=== PATIENT | female | born 1960 | race Asian ===

== ENCOUNTER 2023-02-06 23:52 | Emergency (ER) | payer OTHER ==
[2023-02-07] MEDS ORDERED: Benzonatate 100 MG CAP ONE (00:33)
[2023-02-07] MEDS ORDERED: Ipratropium/Albuterol 3 ML NEB ONE (00:40)
[2023-02-07 00:53] LABS: #Basophils 0.1 10x3/uL (0.0-0.2); #Eosinphils 0.5 10x3/uL (0.0-0.5); #Monocytes 0.5 10x3/uL (0.0-1.1); #Neutrophils 3.3 10x3/uL (1.5-8.4); %Basophils 1.1 % (0.0-2.0); %Lymphocytes 17.1 % (18.0-47.0); %Monocytes 9.3 % (0.0-10.0); %Neutrophils 63.1 % (40.0-75.0); Hemoglobin 9.1 g/dL (12.0-15.5); Mean Corpuscular HGB CONC 32.7 g/dL (32.0-36.0); Mean Corpuscular Hemoglobin 31.8 pg (27.0-33.0); Mean Corpuscular Volume 97.2 fl (81.6-98.3); Mean Platelet Volume 9.5 fl (7.4-10.4); Platelet Count 154 10x3/uL (150-450); RBC Distribution Width 14.3 % (11.5-14.5); Red Blood Cell (RBC) Count 2.86 10x6/uL (3.90-5.03); White Blood Cell (WBC) Count 5.3 10x3/uL (3.5-10.5)
[2023-02-07 01:04] LABS: ALT (SGPT) 12 U/L (8-55); AST (SGOT) 25 U/L (5-34); Albumin 3.2 g/dL (3.5-5.0); Alkaline Phosphatase 66 U/L (40-110); Anion Gap 15 mmol/L (10-20); BUN (Urea Nitrogen) 48 mg/dL (9.8-20.1); Bilirubin, Total 0.6 mg/dL (0.2-1.2); Calc. Creatinine Clearance 0 mL/min (70-130); Calcium 10.1 mg/dL (7.8-10.44); Carbon Dioxide 30 mmol/L (22-29); Chloride 95 mmol/L (98-107); Estimated GFR 6; Globulin 4.7 g/dL (2.4-3.5); Glucose 92 mg/dL (70-105); Potassium 4.4 mmol/L (3.5-5.1); Protein, Total 7.9 g/dL (6.0-8.3); Sodium 136 mmol/L (136-145)
[2023-02-07 01:21] LABS: SARS-CoV-2 NAA Rapid Test Not Detected (NotDetected)
== END 2023-02-07 02:02 | disposition home or self-care (01) ==
LOC: MERGE 23:52 → CSHERS 23:52
DX: J20.9 Acute bronchitis, unspecified (principal); Z20.822 Contact with and (suspected) exposure to COVID-19; I10 Essential (primary) hypertension; E03.9 Hypothyroidism, unspecified
CPT/HCPCS: 71045; 80053; 83880; 85025; 94640; 94760; J7620

== ENCOUNTER 2023-02-07 11:08 | Inpatient (IN) | payer OTHER ==
[2023-02-07] MEDS ORDERED: Acetaminophen 500 MG TAB ONE (12:20)
[2023-02-07] MEDS ORDERED: Cefepime 2 GM VIAL ONE (12:21)
[2023-02-07 12:23] LABS: Hemoglobin 8.3 g/dL (12.0-15.5); Mean Corpuscular HGB CONC 31.6 g/dL (32.0-36.0); Mean Corpuscular Hemoglobin 31.3 pg (27.0-33.0); Mean Corpuscular Volume 99.2 fl (81.6-98.3); Mean Platelet Volume 9.6 fl (7.4-10.4); Platelet Count 147 10x3/uL (150-450); RBC Distribution Width 14.4 % (11.5-14.5); Red Blood Cell (RBC) Count 2.65 10x6/uL (3.90-5.03); White Blood Cell (WBC) Count 5.7 10x3/uL (3.5-10.5)
[2023-02-07 12:24] LABS: #Basophils 0.1 10x3/uL (0.0-0.2); #Eosinphils 0.1 10x3/uL (0.0-0.5); #Monocytes 0.6 10x3/uL (0.0-1.1); #Neutrophils 4.1 10x3/uL (1.5-8.4); %Basophils 0.9 % (0.0-2.0); %Eosinophils 1.1 % (0.0-6.0); %Lymphocytes 15.5 % (18.0-47.0); %Neutrophils 72.1 % (40.0-75.0)
[2023-02-07 12:33] LABS: ALT (SGPT) 9 U/L (8-55); AST (SGOT) 24 U/L (5-34); Albumin 3.2 g/dL (3.5-5.0); Alkaline Phosphatase 56 U/L (40-110); Anion Gap 15 mmol/L (10-20); BUN (Urea Nitrogen) 46 mg/dL (9.8-20.1); Bilirubin, Total 0.5 mg/dL (0.2-1.2); CK (CPK) 121 U/L (29-168); Calc. Creatinine Clearance 0 mL/min (70-130); Calcium 9.5 mg/dL (7.8-10.44); Carbon Dioxide 30 mmol/L (22-29); Chloride 95 mmol/L (98-107); Estimated GFR 5; Globulin 4.2 g/dL (2.4-3.5); Glucose 116 mg/dL (70-105); Potassium 4.2 mmol/L (3.5-5.1); Protein, Total 7.4 g/dL (6.0-8.3); Sodium 136 mmol/L (136-145)
[2023-02-07 12:54] LABS: CKMB 0.8 ng/mL (0-6.6)
[2023-02-07] MEDS ORDERED: Ondansetron PF 4 MG/2 ML Vial IVP PRN (12:55)
[2023-02-07] MEDS ORDERED: Acetaminophen 650 MG Suppository PR PRN (12:55)
[2023-02-07] MEDS ORDERED: HYDROcodone/Acetaminophen 5/325 mg Tablet PO PRN (12:55)
[2023-02-07 13:10] LABS: HBSAg Index 0.14 S/CO (0-0.99)
[2023-02-07 13:46] LABS: Hep B Surf Ag NonReactive S/CO (NonReactive)
[2023-02-07 14:20] LABS: Phosphorus 4.5 mg/dL (2.3-4.7)
[2023-02-07 14:28] LABS: Albumin 3.4 g/dL (3.5-5.0); Anion Gap 18 mmol/L (10-20); BUN (Urea Nitrogen) 45 mg/dL (9.8-20.1); Calc. Creatinine Clearance 0 mL/min (70-130); Calcium 9.6 mg/dL (7.8-10.44); Carbon Dioxide 27 mmol/L (22-29); Chloride 95 mmol/L (98-107); Estimated GFR 5; Glucose 100 mg/dL (70-105); Phosphorus 4.6 mg/dL (2.3-4.7); Potassium 4.4 mmol/L (3.5-5.1); Sodium 136 mmol/L (136-145)
[2023-02-07 15:52] LABS: Troponin I 0.204 ng/mL (< 0.028)
[2023-02-07] MEDS: Heparin 5,000 UNITS/ML VIAL SC SCH ×2 (15:57→20:20)
[2023-02-07 16:49] VITALS: BMI 21.2
[2023-02-07] MEDS ORDERED: FLU VACC QS2022-23(6MOS UP)/PF 60 MCG/0.5 ML SYRINGE IM ONE (17:15)
[2023-02-07 18:16] LABS: Troponin I 0.274 ng/mL (< 0.028)
[2023-02-07] MEDS ORDERED: Heparin 10,000 UNITS/ 10 ML VIAL FS PRN (19:51)
[2023-02-07] MEDS ORDERED: Vancomycin HCl 1 GM in Sodium Chloride 0.9% 250 ML 250 ML IVPB SCH (20:00)
[2023-02-07] MEDS ORDERED: Vancomycin Hemodialysis Sliding Scale FS SCH (20:30)
[2023-02-08 01:44] LABS: Hep B Core Total Ab Non-Reactive (NonReactive); Hep B Core Total Index 0.27 S/CO (0-0.79); Hep C IgG Ab Non-Reactive (NonReactive); Hep C Index 0.27 S/CO (0-0.79)
[2023-02-08 02:16] LABS: HBSAB Concentration 723.01 mIU/mL; Hep B Surf AB Reactive (NonReactive)
[2023-02-08 05:47] LABS: #Eosinphils 0.2 10x3/uL (0.0-0.5); #Monocytes 0.6 10x3/uL (0.0-1.1); #Neutrophils 2.7 10x3/uL (1.5-8.4); %Basophils 0.7 % (0.0-2.0); %Eosinophils 5.3 % (0.0-6.0); %Lymphocytes 21.3 % (18.0-47.0); %Monocytes 12.7 % (0.0-10.0); %Neutrophils 59.8 % (40.0-75.0); Hemoglobin 8.8 g/dL (12.0-15.5); Mean Corpuscular HGB CONC 31.4 g/dL (32.0-36.0); Mean Corpuscular Hemoglobin 31.7 pg (27.0-33.0); Mean Corpuscular Volume 100.7 fl (81.6-98.3); Mean Platelet Volume 9.4 fl (7.4-10.4); Platelet Count 136 10x3/uL (150-450); RBC Distribution Width 14.7 % (11.5-14.5); Red Blood Cell (RBC) Count 2.78 10x6/uL (3.90-5.03); White Blood Cell (WBC) Count 4.5 10x3/uL (3.5-10.5)
[2023-02-08 05:56] LABS: ALT (SGPT) 10 U/L (8-55); AST (SGOT) 20 U/L (5-34); Albumin 2.8 g/dL (3.5-5.0); Alkaline Phosphatase 53 U/L (40-110); Anion Gap 11 mmol/L (10-20); BUN (Urea Nitrogen) 24 mg/dL (9.8-20.1); Bilirubin, Total 0.5 mg/dL (0.2-1.2); Calc. Creatinine Clearance 10 mL/min (70-130); Carbon Dioxide 31 mmol/L (22-29); Chloride 101 mmol/L (98-107); Estimated GFR 9; Globulin 4.3 g/dL (2.4-3.5); Glucose 98 mg/dL (70-105); Potassium 4.5 mmol/L (3.5-5.1); Protein, Total 7.1 g/dL (6.0-8.3); Sodium 138 mmol/L (136-145)
[2023-02-08] MEDS: Heparin 5,000 UNITS/ML VIAL SC SCH ×2 (08:51→14:59)
[2023-02-08] MEDS ORDERED: hydrALAZINE 25 MG TAB PO SCH (09:00)
[2023-02-08] MEDS ORDERED: Metoprolol Tartrate 25 MG TAB PO SCH (09:00)
[2023-02-08] MEDS ORDERED: Cefepime 0.5 GM, Admixture Fee 1 EACH in Sodium Chloride 0.9% 100 ML IVPB SCH (15:00)
[2023-02-08 16:42] VITALS: BP 109/58; TEMP 98.4
== END 2023-02-08 17:45 | disposition short-term general hospital (02) | DRG 871 ==
LOC: CSHERS 11:08 → SUATTDRO 11:08 → CSHTELE 12:54 → OBSVTOIN 12:54
PROVIDERS: ADMIT Internal Medicine; ATTEND Internal Medicine
PROC: 5A1D70Z Performance of Urinary Filtration, Intermittent, Less than 6 Hours Per Day (ICD-10-PCS; principal; 2023-02-07)
PROC: 3E03329 Introduction of Other Anti-infective into Peripheral Vein, Percutaneous Approach (ICD-10-PCS; 2023-02-07)
DX: A41.9 Sepsis, unspecified organism (principal); I21.A1 Myocardial infarction type 2; N18.6 End stage renal disease; J96.01 Acute respiratory failure with hypoxia; J18.9 Pneumonia, unspecified organism; J90 Pleural effusion, not elsewhere classified; I12.0 Hypertensive chronic kidney disease with stage 5 chronic kidney disease or end stage renal disease; E87.70 Fluid overload, unspecified; D63.1 Anemia in chronic kidney disease; Z20.822 Contact with and (suspected) exposure to COVID-19
CPT/HCPCS: 36415; 71045; 71250; 80053; 82550; 82553; 83605; 83880; 84100; 84484; 85025; 86704; 87040; 87081; 90935; 93005; 93306; 94760; 94762; 96365; G0257; J0692; J1644; J3370; J3490; J7050; U0003; U0005

== ENCOUNTER 2023-06-08 15:39 | Emergency (ER) | payer OTHER ==
[~2023-06-08 15:39] MED LIST: Iopamidol 370 76% 100 ML VIAL ONE
[2023-06-08 18:36] LABS: Hemoglobin 8.8 g/dL (12.0-15.5); Mean Corpuscular HGB CONC 29.5 g/dL (32.0-36.0); Mean Corpuscular Hemoglobin 28.2 pg (27.0-33.0); Mean Corpuscular Volume 95.5 fl (81.6-98.3); Mean Platelet Volume 9.8 fl (7.4-10.4); Platelet Count 83 10x3/uL (150-450); RBC Distribution Width 17.2 % (11.5-14.5); Red Blood Cell (RBC) Count 3.12 10x6/uL (3.90-5.03); White Blood Cell (WBC) Count 5.4 10x3/uL (3.5-10.5)
[2023-06-08 18:51] LABS: ALT (SGPT) 8 U/L (8-55); AST (SGOT) 26 U/L (5-34); Albumin 2.8 g/dL (3.4-4.8); Alkaline Phosphatase 49 U/L (40-110); Anion Gap 10 mmol/L (10-20); BUN (Urea Nitrogen) 17 mg/dL (9.8-20.1); Bilirubin, Total 0.8 mg/dL (0.2-1.2); Calc. Creatinine Clearance 0 mL/min (70-130); Carbon Dioxide 33 mmol/L (23-31); Chloride 97 mmol/L (98-107); Estimated GFR 12; Globulin 5.1 g/dL (2.4-3.5); Glucose 72 mg/dL (80-115); Lipase 24 U/L (8-78); Potassium 4.4 mmol/L (3.5-5.1); Protein, Total 7.9 g/dL (5.8-8.1); Sodium 136 mmol/L (136-145)
[2023-06-08 18:54] LABS: MDiff Complete? YES
[2023-06-08 18:56] LABS: Eosinophils 26 % (0-10); Lymphocytes 15 % (21-51); Monocytes 2 % (0-10); Neutrophil 57 % (42-75)
[2023-06-08 18:57] LABS: Anisocytosis SLIGHT = 6-15 cells (100X) (0-5/hpf); Hypochromia SLIGHT = 6-15 cells (100X) (0-5/hpf); Polychromasia SLIGHT = 2-3 cells (100X) (0-2/hpf)
[2023-06-08 18:58] LABS: Platelet Adequacy Comment Platelets Decreased
[2023-06-08 19:14] LABS: CKMB 0.4 ng/mL (0-6.6)
[2023-06-08 19:21] LABS: SARS-CoV-2 NAA Rapid Test Not Detected (NotDetected)
[2023-06-08 19:45] LABS: Bilirubin Neg (Negative); Blood, Urine 10 (Negative); Clarity Clear (Clear); Glucose, Urine (Dipstick) 100 mg/dL (Negative); Ketone, Urine Negative (Negative); Leukocyte Negative (Negative); Nitrite Negative (Negative); Protein, Urine (Dipstick) 500 mg/dl (Neg-Trace); Urobilinogen Normal mg/dL (Less than 2)
[2023-06-08 20:01] LABS: Bacteria/HPF Rare-Few HPF (None Seen); CAUTI Indications for Culture Pelvic or flank pain; RBC/HPF 0-3 HPF (0-3); Squamous Epithelial None Seen HPF (0-3); WBC/HPF 0-3 HPF (0-3)
[2023-06-08 20:02] LABS: Urine Culture Reflex No No
[2023-06-08] MEDS ORDERED: Promethazine HCl 6.25 MG in Sodium Chloride 0.9% 50 ML IVPB SCH (20:30)
== END 2023-06-08 22:00 | disposition home or self-care (01) ==
LOC: CSHERS 15:39
DX: R10.9 Unspecified abdominal pain (principal); R50.9 Fever, unspecified; I12.9 Hypertensive chronic kidney disease with stage 1 through stage 4 chronic kidney disease, or unspecified chronic kidney disease; N18.9 Chronic kidney disease, unspecified; E03.9 Hypothyroidism, unspecified
CPT/HCPCS: 36415; 36416; 51701; 71045; 74176; 74177; 80053; 81001; 82553; 83605; 83690; 83735; 84484; 85025; 87040; 93005; 96365; J2550; Q9967; U0002

== ENCOUNTER 2023-07-07 17:50 | Inpatient (IN) | payer OTHER ==
[2023-07-07] MEDS ORDERED: Acetaminophen 500 MG TAB ONE (18:57)
[2023-07-07 19:35] LABS: #Basophils 0.1 10x3/uL (0.0-0.2); #Eosinphils 0.1 10x3/uL (0.0-0.5); #Monocytes 0.6 10x3/uL (0.0-1.1); #Neutrophils 6.7 10x3/uL (1.5-8.4); %Basophils 0.7 % (0.0-2.0); %Eosinophils 1.4 % (0.0-6.0); %Lymphocytes 11.7 % (18.0-47.0); %Monocytes 7.4 % (0.0-10.0); %Neutrophils 77.6 % (40.0-75.0); Hematocrit 24.8 % (34.9-44.5); Hemoglobin 7.8 g/dL (12.0-15.5); Mean Corpuscular HGB CONC 31.5 g/dL (32.0-36.0); Mean Corpuscular Hemoglobin 29.3 pg (27.0-33.0); Mean Corpuscular Volume 93.2 fl (81.6-98.3); Mean Platelet Volume 10.3 fl (7.4-10.4); Platelet Count 132 10x3/uL (150-450); RBC Distribution Width 17.9 % (11.5-14.5); Red Blood Cell (RBC) Count 2.66 10x6/uL (3.90-5.03); White Blood Cell (WBC) Count 8.6 10x3/uL (3.5-10.5)
[2023-07-07 19:45] LABS: INR-International Normal Ratio 1.4; PTT 34.7 sec (22.0-33.0); Prothrombin Time 14.9 sec (9.5-12.1)
[2023-07-07 19:48] LABS: ALT (SGPT) 28 U/L (8-55); AST (SGOT) 57 U/L (5-34); Albumin 2.8 g/dL (3.4-4.8); Alkaline Phosphatase 63 U/L (40-110); Anion Gap 16 mmol/L (10-20); BUN (Urea Nitrogen) 46 mg/dL (9.8-20.1); Calc. Creatinine Clearance 0 mL/min (70-130); Calcium 8.8 mg/dL (7.8-10.44); Carbon Dioxide 27 mmol/L (23-31); Chloride 93 mmol/L (98-107); Estimated GFR 8; Globulin 4.9 g/dL (2.4-3.5); Glucose 81 mg/dL (80-115); Potassium 5.2 mmol/L (3.5-5.1); Protein, Total 7.7 g/dL (5.8-8.1); Sodium 131 mmol/L (136-145)
[2023-07-07 20:32] LABS: Bilirubin Neg (Negative); Blood, Urine 150 (Negative); Glucose, Urine (Dipstick) 100 mg/dL (Negative); Ketone, Urine Negative (Negative); Leukocyte 25 (Negative); Nitrite Negative (Negative); Protein, Urine (Dipstick) 500 mg/dl (Neg-Trace); Urobilinogen Normal mg/dL (Less than 2)
[2023-07-07 20:39] LABS: Clarity Hazy (Clear); RBC/HPF 21-50 HPF (0-3)
[2023-07-07 20:40] LABS: CAUTI Indications for Culture Dysuria,urgency,freq; Squamous Epithelial 0-3 HPF (0-3); WBC/HPF 0-3 HPF (0-3)
[2023-07-07 20:41] LABS: Bacteria/HPF None Seen HPF (None Seen); Urine Culture Reflex No No
[2023-07-07 21:06] LABS: SARS-CoV-2 NAA Rapid Test Not Detected (NotDetected)
[2023-07-08] MEDS ORDERED: Piperacillin/Tazobactam 3.375 GM in Sodium Chloride 0.9% 100 ML IVPB SCH (01:00)
[2023-07-08] MEDS: Mineral Oil ENEMA PR SCH ×3 (01:05→08:10)
[2023-07-08 03:46] VITALS: BMI 18.3
[2023-07-08] MEDS: Piperacillin/Tazobactam 3.375 GM in Sodium Chloride 0.9% 100 ML IVPB SCH ×2 (04:15→21:20)
[2023-07-08 05:30] LABS: #Basophils 0.1 10x3/uL (0.0-0.2); #Eosinphils 0.2 10x3/uL (0.0-0.5); #Monocytes 0.6 10x3/uL (0.0-1.1); #Neutrophils 7.7 10x3/uL (1.5-8.4); %Basophils 0.6 % (0.0-2.0); %Eosinophils 1.8 % (0.0-6.0); %Lymphocytes 9.4 % (18.0-47.0); %Monocytes 6.2 % (0.0-10.0); %Neutrophils 81.2 % (40.0-75.0); Hematocrit 29.8 % (34.9-44.5); Hemoglobin 9.7 g/dL (12.0-15.5); Mean Corpuscular HGB CONC 32.6 g/dL (32.0-36.0); Mean Corpuscular Hemoglobin 29.7 pg (27.0-33.0); Mean Corpuscular Volume 91.1 fl (81.6-98.3); Mean Platelet Volume 10.5 fl (7.4-10.4); Platelet Count 105 10x3/uL (150-450); RBC Distribution Width 18.4 % (11.5-14.5); Red Blood Cell (RBC) Count 3.27 10x6/uL (3.90-5.03); White Blood Cell (WBC) Count 9.5 10x3/uL (3.5-10.5)
[2023-07-08 05:46] LABS: Anion Gap 20 mmol/L (10-20); BUN (Urea Nitrogen) 54 mg/dL (9.8-20.1); Calc. Creatinine Clearance 7 mL/min (70-130); Calcium 8.5 mg/dL (7.8-10.44); Carbon Dioxide 22 mmol/L (23-31); Chloride 95 mmol/L (98-107); Estimated GFR 7; Glucose 95 mg/dL (80-115); Phosphorus 4.5 mg/dL (2.3-4.7); Potassium 5.6 mmol/L (3.5-5.1); Sodium 131 mmol/L (136-145)
[2023-07-08] MEDS: Docusate 100 MG CAP PO SCH ×2 (08:09→21:41)
[2023-07-08] MEDS ORDERED: Insulin Regular 300 UNITS/3 ML VIAL IVP SCH (09:00)
[2023-07-08] MEDS ORDERED: Dextrose 50% Abboject 50 ML SYRINGE SLOW IVP SCH ×2 (09:00→13:05)
[2023-07-08] MEDS ORDERED: Piperacillin/Tazobactam 2.25 GM in Sodium Chloride 0.9% 100 ML IVPB SCH (09:00)
[2023-07-08] MEDS ORDERED: Polyethylene Glycol 3350 17 GM Packet PO SCH ×3 (09:00→21:00)
[2023-07-08] MEDS: Folic Acid/Vit B Comp W-C PO SCH (09:52)
[2023-07-08] MEDS: Dextrose 5 %-0.45 % NaCl 1,000 ML IV SCH (13:54)
[2023-07-08 20:44] LABS: Campy jejuni + coli by PCR Negative (Negative); STEC Shiga Toxin 1+2 Negative (Negative); Salmonella spp. by PCR Negative (Negative); Shigella spp + EIEC by PCR Negative (Negative)
[2023-07-08] MEDS ORDERED: Dextrose 50% Abboject 50 ML SYRINGE ONE (21:29)
[2023-07-09] MEDS ORDERED: Vancomycin HCl 1 GM in Sodium Chloride 0.9% 250 ML 250 ML IVPB SCH (00:30)
[2023-07-09] MEDS ORDERED: Vancomycin Hemodialysis Sliding Scale FS SCH (00:45)
[2023-07-09] MEDS ORDERED: metroNIDAZOLE 500 MG in Premix Bag 1 BAG IVPB SCH (01:00)
[2023-07-09] MEDS: Acetaminophen 325 MG TAB PO PRN (01:07)
[2023-07-09 05:06] LABS: Anion Gap 15 mmol/L (10-20); BUN (Urea Nitrogen) 18 mg/dL (9.8-20.1); Calc. Creatinine Clearance 14 mL/min (70-130); Calcium 7.9 mg/dL (7.8-10.44); Carbon Dioxide 24 mmol/L (23-31); Chloride 100 mmol/L (98-107); Estimated GFR 15; Glucose 111 mg/dL (80-115); Potassium 3.8 mmol/L (3.5-5.1); Sodium 135 mmol/L (136-145)
[2023-07-09 05:08] LABS: Hematocrit 30.6 % (34.9-44.5); Hemoglobin 9.6 g/dL (12.0-15.5); Mean Corpuscular HGB CONC 31.4 g/dL (32.0-36.0); Mean Corpuscular Hemoglobin 29.1 pg (27.0-33.0); Mean Corpuscular Volume 92.7 fl (81.6-98.3); Mean Platelet Volume 10.2 fl (7.4-10.4); Platelet Count 104 10x3/uL (150-450); RBC Distribution Width 18.4 % (11.5-14.5); White Blood Cell (WBC) Count 9.9 10x3/uL (3.5-10.5)
[2023-07-09] MEDS: Levothyroxine Sodium 100 MCG TAB PO SCH (05:30)
[2023-07-09] MEDS: Piperacillin/Tazobactam 3.375 GM in Sodium Chloride 0.9% 100 ML IVPB SCH ×2 (05:31→17:02)
[2023-07-09] MEDS: Docusate 100 MG CAP PO SCH (09:24)
[2023-07-09] MEDS: Folic Acid/Vit B Comp W-C PO SCH (09:25)
[2023-07-09] MEDS: Dextrose 5 %-0.45 % NaCl 1,000 ML IV SCH (09:43)
[2023-07-10] MEDS: Piperacillin/Tazobactam 3.375 GM in Sodium Chloride 0.9% 100 ML IVPB SCH ×2 (05:51→17:23)
[2023-07-10] MEDS: Levothyroxine Sodium 100 MCG TAB PO SCH (05:52)
[2023-07-10] MEDS: Folic Acid/Vit B Comp W-C PO SCH (08:31)
[2023-07-10] MEDS ORDERED: Epoetin (ESRD) 10,000 UNITS/ML VIAL IVP PRN (11:15)
[2023-07-11] MEDS: Levothyroxine Sodium 100 MCG TAB PO SCH (05:27)
[2023-07-11 07:53] LABS: Hematocrit 28.7 % (34.9-44.5); Hemoglobin 9.1 g/dL (12.0-15.5); Mean Corpuscular HGB CONC 31.7 g/dL (32.0-36.0); Mean Corpuscular Hemoglobin 29.3 pg (27.0-33.0); Mean Corpuscular Volume 92.3 fl (81.6-98.3); Mean Platelet Volume 9.5 fl (7.4-10.4); Platelet Count 112 10x3/uL (150-450); RBC Distribution Width 18.4 % (11.5-14.5); Red Blood Cell (RBC) Count 3.11 10x6/uL (3.90-5.03); Vancomycin, Random 15.7 ug/mL (See Comment); White Blood Cell (WBC) Count 7.8 10x3/uL (3.5-10.5)
[2023-07-11 07:57] LABS: Anion Gap 15 mmol/L (10-20); BUN (Urea Nitrogen) 34 mg/dL (9.8-20.1); Calc. Creatinine Clearance 8 mL/min (70-130); Calcium 7.8 mg/dL (7.8-10.44); Carbon Dioxide 23 mmol/L (23-31); Chloride 98 mmol/L (98-107); Estimated GFR 7; Glucose 83 mg/dL (80-115); Potassium 4.2 mmol/L (3.5-5.1); Sodium 132 mmol/L (136-145)
[2023-07-11] MEDS: Folic Acid/Vit B Comp W-C PO SCH (08:33)
[2023-07-11] MEDS: Hydrocortisone 10 mg Tablet PO SCH ×3 (09:23→12:21)
[2023-07-11] MEDS ORDERED: Vancomycin HCl 500 MG in Sodium Chloride 0.9% 100 ML IVPB SCH (17:00)
[2023-07-11] MEDS: Acetaminophen 325 MG TAB PO PRN (22:25)
[2023-07-12] MEDS: Levothyroxine Sodium 100 MCG TAB PO SCH (06:34)
[2023-07-12] MEDS: Hydrocortisone 10 mg Tablet PO SCH ×2 (08:04→13:23)
[2023-07-12] MEDS: Folic Acid/Vit B Comp W-C PO SCH (08:13)
[2023-07-12 09:35] LABS: Albumin 2.3 g/dL (3.4-4.8); Anion Gap 14 mmol/L (10-20); BUN (Urea Nitrogen) 18 mg/dL (9.8-20.1); BUN/Creatinine Ratio 4.59; Calc. Creatinine Clearance 12 mL/min (70-130); Calcium 8.1 mg/dL (7.8-10.44); Carbon Dioxide 24 mmol/L (23-31); Chloride 100 mmol/L (98-107); Estimated GFR 12; Glucose 86 mg/dL (80-115); Phosphorus 3.7 mg/dL (2.3-4.7); Potassium 3.9 mmol/L (3.5-5.1); Sodium 134 mmol/L (136-145)
[2023-07-12] MEDS: Senokot S 8.6-50 MG TAB PO SCH (21:49)
[2023-07-13 03:10] LABS: #Basophils 0.1 10x3/uL (0.0-0.2); #Eosinphils 0.4 10x3/uL (0.0-0.5); #Monocytes 0.6 10x3/uL (0.0-1.1); #Neutrophils 4.7 10x3/uL (1.5-8.4); %Basophils 0.9 % (0.0-2.0); %Eosinophils 5.9 % (0.0-6.0); %Lymphocytes 15.6 % (18.0-47.0); %Monocytes 8.7 % (0.0-10.0); %Neutrophils 68.6 % (40.0-75.0); Hematocrit 28.8 % (34.9-44.5); Hemoglobin 9.1 g/dL (12.0-15.5); Mean Corpuscular HGB CONC 31.6 g/dL (32.0-36.0); Mean Corpuscular Hemoglobin 29.5 pg (27.0-33.0); Mean Corpuscular Volume 93.5 fl (81.6-98.3); Mean Platelet Volume 9.5 fl (7.4-10.4); Platelet Count 142 10x3/uL (150-450); RBC Distribution Width 18.4 % (11.5-14.5); Red Blood Cell (RBC) Count 3.08 10x6/uL (3.90-5.03); White Blood Cell (WBC) Count 6.8 10x3/uL (3.5-10.5)
[2023-07-13 04:09] LABS: Albumin 2.2 g/dL (3.4-4.8); Anion Gap 15 mmol/L (10-20); BUN (Urea Nitrogen) 25 mg/dL (9.8-20.1); BUN/Creatinine Ratio 5.04; Calc. Creatinine Clearance 9 mL/min (70-130); Calcium 8.4 mg/dL (7.8-10.44); Carbon Dioxide 25 mmol/L (23-31); Chloride 97 mmol/L (98-107); Estimated GFR 9; Glucose 117 mg/dL (80-115); Potassium 4.3 mmol/L (3.5-5.1); Sodium 133 mmol/L (136-145)
[2023-07-13] MEDS: Levothyroxine Sodium 100 MCG TAB PO SCH (05:43)
[2023-07-13 07:32] LABS: Vancomycin, Random 16.8 ug/mL (See Comment)
[2023-07-13] MEDS: Hydrocortisone 10 mg Tablet PO SCH ×2 (09:06→12:49)
[2023-07-13] MEDS: Senokot S 8.6-50 MG TAB PO SCH ×2 (09:06→21:45)
[2023-07-13] MEDS: Polyethylene Glycol 3350 17 GM Packet PO SCH (09:06)
[2023-07-13] MEDS: Folic Acid/Vit B Comp W-C PO SCH (09:07)
[2023-07-13] MEDS: Sevelamer Carbonate 800 MG TAB PO SCH ×2 (12:50→18:30)
[2023-07-13] MEDS ORDERED: Vancomycin HCl 500 MG in Sodium Chloride 0.9% 100 ML IVPB SCH (17:00)
[2023-07-13] MEDS: Acetaminophen 325 MG TAB PO PRN (23:29)
[2023-07-14 03:28] LABS: #Eosinphils 0.5 10x3/uL (0.0-0.5); #Monocytes 0.5 10x3/uL (0.0-1.1); #Neutrophils 4.7 10x3/uL (1.5-8.4); %Basophils 0.6 % (0.0-2.0); %Eosinophils 7.7 % (0.0-6.0); %Lymphocytes 17.1 % (18.0-47.0); %Monocytes 6.8 % (0.0-10.0); %Neutrophils 67.4 % (40.0-75.0); Hematocrit 28.5 % (34.9-44.5); Hemoglobin 8.7 g/dL (12.0-15.5); Mean Corpuscular HGB CONC 30.5 g/dL (32.0-36.0); Mean Platelet Volume 9.3 fl (7.4-10.4); Platelet Count 156 10x3/uL (150-450); RBC Distribution Width 18.4 % (11.5-14.5); White Blood Cell (WBC) Count 6.9 10x3/uL (3.5-10.5)
[2023-07-14 04:10] LABS: Albumin 2.1 g/dL (3.4-4.8); Anion Gap 15 mmol/L (10-20); BUN (Urea Nitrogen) 34 mg/dL (9.8-20.1); BUN/Creatinine Ratio 5.63; Calc. Creatinine Clearance 8 mL/min (70-130); Carbon Dioxide 23 mmol/L (23-31); Chloride 98 mmol/L (98-107); Estimated GFR 7; Glucose 94 mg/dL (80-115); Phosphorus 6.1 mg/dL (2.3-4.7); Potassium 4.4 mmol/L (3.5-5.1); Sodium 132 mmol/L (136-145)
[2023-07-14] MEDS: Levothyroxine Sodium 100 MCG TAB PO SCH (05:53)
[2023-07-14] MEDS: Hydrocortisone 10 mg Tablet PO SCH ×2 (10:11→10:12)
[2023-07-14] MEDS: Sevelamer Carbonate 800 MG TAB PO SCH ×3 (10:11→17:40)
[2023-07-14] MEDS: Senokot S 8.6-50 MG TAB PO SCH ×2 (10:12→21:47)
[2023-07-14] MEDS: Polyethylene Glycol 3350 17 GM Packet PO SCH (10:12)
[2023-07-14] MEDS: Folic Acid/Vit B Comp W-C PO SCH (10:13)
[2023-07-14] MEDS ORDERED: Heparin 10,000 UNITS/ 10 ML VIAL ONE (11:42)
[2023-07-14] MEDS ORDERED: Bupivacaine PF 0.5% 30 ML VIAL ONE (11:42)
[2023-07-14] MEDS: hydrALAZINE 25 MG TAB PO SCH ×2 (15:40→21:48)
[2023-07-14] MEDS: Amlodipine 10 MG TAB PO SCH (21:47)
[2023-07-15 05:23] LABS: #Eosinphils 0.4 10x3/uL (0.0-0.5); #Monocytes 0.5 10x3/uL (0.0-1.1); #Neutrophils 4.1 10x3/uL (1.5-8.4); %Basophils 0.7 % (0.0-2.0); %Eosinophils 6.4 % (0.0-6.0); %Lymphocytes 15.9 % (18.0-47.0); %Monocytes 8.4 % (0.0-10.0); %Neutrophils 68.1 % (40.0-75.0); Hematocrit 28.8 % (34.9-44.5); Hemoglobin 8.8 g/dL (12.0-15.5); Mean Corpuscular HGB CONC 30.6 g/dL (32.0-36.0); Mean Corpuscular Hemoglobin 29.6 pg (27.0-33.0); Mean Platelet Volume 9.2 fl (7.4-10.4); Platelet Count 153 10x3/uL (150-450); RBC Distribution Width 18.6 % (11.5-14.5); Red Blood Cell (RBC) Count 2.97 10x6/uL (3.90-5.03)
[2023-07-15] MEDS: Levothyroxine Sodium 100 MCG TAB PO SCH (05:41)
[2023-07-15 05:47] LABS: Albumin 2.1 g/dL (3.4-4.8); Anion Gap 12 mmol/L (10-20); BUN (Urea Nitrogen) 17 mg/dL (9.8-20.1); BUN/Creatinine Ratio 4.58; Calc. Creatinine Clearance 13 mL/min (70-130); Calcium 7.8 mg/dL (7.8-10.44); Carbon Dioxide 27 mmol/L (23-31); Chloride 100 mmol/L (98-107); Estimated GFR 13; Glucose 94 mg/dL (80-115); Phosphorus 4.1 mg/dL (2.3-4.7); Potassium 3.8 mmol/L (3.5-5.1); Sodium 135 mmol/L (136-145)
[2023-07-15 06:20] LABS: Vancomycin, Random 16.7 ug/mL (See Comment)
[2023-07-15] MEDS: Folic Acid/Vit B Comp W-C PO SCH (10:39)
[2023-07-15] MEDS: Senokot S 8.6-50 MG TAB PO SCH ×2 (10:39→21:49)
[2023-07-15] MEDS: Polyethylene Glycol 3350 17 GM Packet PO SCH (10:39)
[2023-07-15] MEDS: hydrALAZINE 25 MG TAB PO SCH ×3 (10:39→21:49)
[2023-07-15] MEDS: Sevelamer Carbonate 800 MG TAB PO SCH ×4 (10:39→17:36)
[2023-07-15] MEDS: Hydrocortisone 10 mg Tablet PO SCH ×2 (10:48→12:44)
[2023-07-15] MEDS ORDERED: Morphine 2 MG/ML VIAL SLOW IVP SCH (12:00)
[2023-07-15] MEDS ORDERED: Vancomycin HCl 500 MG in Sodium Chloride 0.9% 100 ML IVPB SCH (17:00)
[2023-07-15] MEDS: Acetaminophen 325 MG TAB PO PRN (17:35)
[2023-07-15] MEDS ORDERED: Metoprolol Tartrate 25 MG TAB PO SCH (18:00)
[2023-07-15] MEDS: Amlodipine 10 MG TAB PO SCH (21:49)
[2023-07-16 05:03] LABS: #Eosinphils 0.6 10x3/uL (0.0-0.5); #Monocytes 0.5 10x3/uL (0.0-1.1); #Neutrophils 3.7 10x3/uL (1.5-8.4); %Basophils 0.7 % (0.0-2.0); %Eosinophils 9.9 % (0.0-6.0); %Lymphocytes 19.7 % (18.0-47.0); %Monocytes 8.6 % (0.0-10.0); %Neutrophils 60.9 % (40.0-75.0); Hematocrit 29.3 % (34.9-44.5); Hemoglobin 8.8 g/dL (12.0-15.5); Mean Corpuscular Volume 96.7 fl (81.6-98.3); Mean Platelet Volume 9.2 fl (7.4-10.4); Platelet Count 154 10x3/uL (150-450); RBC Distribution Width 18.9 % (11.5-14.5); Red Blood Cell (RBC) Count 3.03 10x6/uL (3.90-5.03); White Blood Cell (WBC) Count 6.1 10x3/uL (3.5-10.5)
[2023-07-16 05:24] LABS: Anion Gap 13 mmol/L (10-20); BUN (Urea Nitrogen) 23 mg/dL (9.8-20.1); Calc. Creatinine Clearance 9 mL/min (70-130); Calcium 8.1 mg/dL (7.8-10.44); Carbon Dioxide 27 mmol/L (23-31); Chloride 98 mmol/L (98-107); Estimated GFR 9; Glucose 68 mg/dL (80-115); Potassium 4.6 mmol/L (3.5-5.1); Sodium 133 mmol/L (136-145)
[2023-07-16] MEDS: Levothyroxine Sodium 100 MCG TAB PO SCH (05:37)
[2023-07-16] MEDS: Sevelamer Carbonate 800 MG TAB PO SCH ×3 (08:27→17:06)
[2023-07-16] MEDS: hydrALAZINE 25 MG TAB PO SCH ×3 (08:27→22:23)
[2023-07-16] MEDS: Folic Acid/Vit B Comp W-C PO SCH (08:27)
[2023-07-16] MEDS ORDERED: Bisacodyl 5 MG TAB PO SCH (09:00)
[2023-07-16] MEDS: Polyethylene Glycol 3350 17 GM Packet PO SCH (09:08)
[2023-07-16] MEDS: Hydrocortisone 10 mg Tablet PO SCH ×2 (09:08→13:00)
[2023-07-16] MEDS: Acetaminophen 325 MG TAB PO PRN (09:09)
[2023-07-16] MEDS: Senokot S 8.6-50 MG TAB PO SCH ×2 (09:10→22:24)
[2023-07-16] MEDS: Amlodipine 10 MG TAB PO SCH (22:24)
[2023-07-17 03:44] LABS: #Basophils 0.1 10x3/uL (0.0-0.2); #Eosinphils 0.7 10x3/uL (0.0-0.5); #Monocytes 0.4 10x3/uL (0.0-1.1); #Neutrophils 3.4 10x3/uL (1.5-8.4); %Basophils 1.1 % (0.0-2.0); %Eosinophils 12.5 % (0.0-6.0); %Lymphocytes 17.7 % (18.0-47.0); %Monocytes 6.8 % (0.0-10.0); %Neutrophils 61.5 % (40.0-75.0); Hematocrit 28.5 % (34.9-44.5); Hemoglobin 8.5 g/dL (12.0-15.5); Mean Corpuscular HGB CONC 29.8 g/dL (32.0-36.0); Mean Corpuscular Hemoglobin 29.2 pg (27.0-33.0); Mean Corpuscular Volume 97.9 fl (81.6-98.3); Platelet Count 159 10x3/uL (150-450); RBC Distribution Width 18.8 % (11.5-14.5); Red Blood Cell (RBC) Count 2.91 10x6/uL (3.90-5.03); White Blood Cell (WBC) Count 5.6 10x3/uL (3.5-10.5)
[2023-07-17] MEDS: Levothyroxine Sodium 100 MCG TAB PO SCH (06:54)
[2023-07-17] MEDS: Polyethylene Glycol 3350 17 GM Packet PO SCH (08:42)
[2023-07-17] MEDS: hydrALAZINE 25 MG TAB PO SCH ×3 (08:42→21:44)
[2023-07-17] MEDS: Sevelamer Carbonate 800 MG TAB PO SCH ×3 (08:42→16:32)
[2023-07-17] MEDS: Senokot S 8.6-50 MG TAB PO SCH ×2 (08:42→23:00)
[2023-07-17] MEDS: Folic Acid/Vit B Comp W-C PO SCH (08:43)
[2023-07-17] MEDS: Hydrocortisone 10 mg Tablet PO SCH ×2 (08:58→12:08)
[2023-07-17] MEDS: Acetaminophen 325 MG TAB PO PRN (12:08)
[2023-07-17] MEDS ORDERED: Azithromycin 250 MG TAB PO SCH (17:00)
[2023-07-17] MEDS: cefTRIAXone\\ROCEPHIN 1 GM in Sodium Chloride 0.9% 100 ML IVPB SCH (18:49)
[2023-07-17] MEDS: Amlodipine 10 MG TAB PO SCH (21:44)
[2023-07-18 03:39] LABS: #Basophils 0.1 10x3/uL (0.0-0.2); #Eosinphils 0.7 10x3/uL (0.0-0.5); #Monocytes 0.5 10x3/uL (0.0-1.1); #Neutrophils 4.2 10x3/uL (1.5-8.4); %Basophils 0.9 % (0.0-2.0); %Eosinophils 10.4 % (0.0-6.0); %Lymphocytes 16.6 % (18.0-47.0); %Monocytes 7.1 % (0.0-10.0); %Neutrophils 64.8 % (40.0-75.0); Hematocrit 27.6 % (34.9-44.5); Hemoglobin 8.3 g/dL (12.0-15.5); Mean Corpuscular HGB CONC 30.1 g/dL (32.0-36.0); Mean Corpuscular Hemoglobin 29.9 pg (27.0-33.0); Mean Corpuscular Volume 99.3 fl (81.6-98.3); Mean Platelet Volume 9.3 fl (7.4-10.4); Platelet Count 157 10x3/uL (150-450); RBC Distribution Width 19.2 % (11.5-14.5); Red Blood Cell (RBC) Count 2.78 10x6/uL (3.90-5.03); White Blood Cell (WBC) Count 6.5 10x3/uL (3.5-10.5)
[2023-07-18 03:45] LABS: Vancomycin, Random 18.2 ug/mL (See Comment)
[2023-07-18] MEDS: Levothyroxine Sodium 100 MCG TAB PO SCH (07:49)
[2023-07-18] MEDS: Sevelamer Carbonate 800 MG TAB PO SCH ×3 (08:06→16:11)
[2023-07-18] MEDS ORDERED: Dextrose 50% Abboject 50 ML SYRINGE SLOW IVP SCH (08:15)
[2023-07-18] MEDS ORDERED: PROPOFOL 20 ML ONE (10:06)
[2023-07-18] MEDS: Hydrocortisone 10 mg Tablet PO SCH ×2 (12:00→12:27)
[2023-07-18] MEDS: hydrALAZINE 25 MG TAB PO SCH ×3 (12:25→20:33)
[2023-07-18] MEDS: Folic Acid/Vit B Comp W-C PO SCH (12:25)
[2023-07-18] MEDS: Polyethylene Glycol 3350 17 GM Packet PO SCH (12:26)
[2023-07-18] MEDS: Senokot S 8.6-50 MG TAB PO SCH ×2 (12:26→20:33)
[2023-07-18] MEDS: Azithromycin 250 MG TAB PO SCH (15:16)
[2023-07-18] MEDS ORDERED: cefTRIAXone (ROCEPHIN) 1 GM VIAL ONE (16:05)
[2023-07-18] MEDS: cefTRIAXone\\ROCEPHIN 1 GM in Sodium Chloride 0.9% 100 ML IVPB SCH (16:11)
[2023-07-18] MEDS: Acetaminophen 325 MG TAB PO PRN (16:20)
[2023-07-18] MEDS ORDERED: Vancomycin HCl 500 MG in Sodium Chloride 0.9% 100 ML IVPB SCH (17:00)
[2023-07-18] MEDS: Amlodipine 10 MG TAB PO SCH (20:32)
[2023-07-19 04:57] LABS: #Basophils 0.1 10x3/uL (0.0-0.2); #Eosinphils 0.7 10x3/uL (0.0-0.5); #Monocytes 0.5 10x3/uL (0.0-1.1); #Neutrophils 3.6 10x3/uL (1.5-8.4); %Basophils 1.3 % (0.0-2.0); %Eosinophils 11.6 % (0.0-6.0); %Lymphocytes 20.2 % (18.0-47.0); %Monocytes 7.9 % (0.0-10.0); %Neutrophils 58.7 % (40.0-75.0); Hematocrit 28.1 % (34.9-44.5); Hemoglobin 8.4 g/dL (12.0-15.5); Mean Corpuscular HGB CONC 29.9 g/dL (32.0-36.0); Mean Corpuscular Hemoglobin 29.8 pg (27.0-33.0); Mean Corpuscular Volume 99.6 fl (81.6-98.3); Mean Platelet Volume 9.3 fl (7.4-10.4); Platelet Count 151 10x3/uL (150-450); RBC Distribution Width 19.4 % (11.5-14.5); Red Blood Cell (RBC) Count 2.82 10x6/uL (3.90-5.03); White Blood Cell (WBC) Count 6.2 10x3/uL (3.5-10.5)
[2023-07-19] MEDS: Levothyroxine Sodium 100 MCG TAB PO SCH (06:09)
[2023-07-19] MEDS: Azithromycin 250 MG TAB PO SCH (09:17)
[2023-07-19] MEDS: hydrALAZINE 25 MG TAB PO SCH ×3 (09:17→20:46)
[2023-07-19] MEDS: Senokot S 8.6-50 MG TAB PO SCH ×2 (09:18→20:47)
[2023-07-19] MEDS: Folic Acid/Vit B Comp W-C PO SCH (09:18)
[2023-07-19] MEDS: Sevelamer Carbonate 800 MG TAB PO SCH ×3 (09:18→17:58)
[2023-07-19] MEDS: Polyethylene Glycol 3350 17 GM Packet PO SCH (09:18)
[2023-07-19] MEDS: Hydrocortisone 10 mg Tablet PO SCH ×2 (09:18→12:28)
[2023-07-19] MEDS: cefTRIAXone\\ROCEPHIN 1 GM in Sodium Chloride 0.9% 100 ML IVPB SCH (18:11)
[2023-07-19] MEDS: Amlodipine 10 MG TAB PO SCH (20:46)
[2023-07-20] MEDS: Levothyroxine Sodium 100 MCG TAB PO SCH (05:22)
[2023-07-20 06:34] LABS: Hematocrit 40.3 % (34.9-44.5); Hemoglobin 12.4 g/dL (12.0-15.5); Mean Corpuscular HGB CONC 30.8 g/dL (32.0-36.0); Mean Corpuscular Hemoglobin 30.1 pg (27.0-33.0); Mean Corpuscular Volume 97.8 fl (81.6-98.3); Red Blood Cell (RBC) Count 4.12 10x6/uL (3.90-5.03); White Blood Cell (WBC) Count 3.1 10x3/uL (3.5-10.5)
[2023-07-20 06:35] LABS: %Eosinophils 11.7 % (0.0-6.0); %Lymphocytes 28.2 % (18.0-47.0); %Monocytes 6.8 % (0.0-10.0); %Neutrophils 52.3 % (40.0-75.0); Mean Platelet Volume 9.9 fl (7.4-10.4); Platelet Count 110 10x3/uL (130-400); RBC Distribution Width 19.9 % (11.5-14.5)
[2023-07-20 06:38] LABS: #Eosinphils 0.4 10x3/uL (0.0-0.5); #Monocytes 0.2 10x3/uL (0.0-1.1); #Neutrophils 1.6 10x3/uL (1.5-8.4)
[2023-07-20 06:50] LABS: Platelet Adequacy Comment Appears Decreased; RBC Morph Comment Within Normal Limits
[2023-07-20] MEDS ORDERED: Vancomycin Hemodialysis Sliding Scale FS SCH (07:45)
[2023-07-20] MEDS: hydrALAZINE 25 MG TAB PO SCH ×3 (08:18→21:33)
[2023-07-20] MEDS: Polyethylene Glycol 3350 17 GM Packet PO SCH (08:18)
[2023-07-20] MEDS: Folic Acid/Vit B Comp W-C PO SCH (08:18)
[2023-07-20] MEDS: Sevelamer Carbonate 800 MG TAB PO SCH ×3 (08:18→17:39)
[2023-07-20] MEDS: Senokot S 8.6-50 MG TAB PO SCH ×2 (08:18→21:33)
[2023-07-20] MEDS: Hydrocortisone 10 mg Tablet PO SCH ×2 (08:18→11:43)
[2023-07-20] MEDS ORDERED: Vancomycin HCl 500 MG in Sodium Chloride 0.9% 100 ML IVPB SCH (17:00)
[2023-07-20] MEDS: Amlodipine 10 MG TAB PO SCH (21:33)
[2023-07-21 04:28] LABS: #Basophils 0.1 10x3/uL (0.0-0.2); #Eosinphils 0.5 10x3/uL (0.0-0.5); #Monocytes 0.3 10x3/uL (0.0-1.1); #Neutrophils 2.4 10x3/uL (1.5-8.4); %Basophils 1.9 % (0.0-2.0); %Eosinophils 12.4 % (0.0-6.0); %Lymphocytes 21.6 % (18.0-47.0); %Neutrophils 55.9 % (40.0-75.0); Hematocrit 29.1 % (34.9-44.5); Hemoglobin 8.7 g/dL (12.0-15.5); Mean Corpuscular HGB CONC 29.9 g/dL (32.0-36.0); Mean Corpuscular Hemoglobin 29.7 pg (27.0-33.0); Mean Corpuscular Volume 99.3 fl (81.6-98.3); Platelet Count 144 10x3/uL (150-450); RBC Distribution Width 19.6 % (11.5-14.5); Red Blood Cell (RBC) Count 2.93 10x6/uL (3.90-5.03); White Blood Cell (WBC) Count 4.3 10x3/uL (3.5-10.5)
[2023-07-21 04:38] LABS: Anion Gap 10 mmol/L (10-20); BUN (Urea Nitrogen) 9 mg/dL (9.8-20.1); Calc. Creatinine Clearance 16 mL/min (70-130); Calcium 8.4 mg/dL (7.8-10.44); Carbon Dioxide 30 mmol/L (23-31); Chloride 100 mmol/L (98-107); Estimated GFR 18; Glucose 79 mg/dL (80-115); Potassium 4.1 mmol/L (3.5-5.1); Sodium 136 mmol/L (136-145)
[2023-07-21] MEDS: Levothyroxine Sodium 100 MCG TAB PO SCH (05:09)
[2023-07-21] MEDS: Folic Acid/Vit B Comp W-C PO SCH (09:42)
[2023-07-21] MEDS: hydrALAZINE 25 MG TAB PO SCH (09:43)
[2023-07-21] MEDS: Sevelamer Carbonate 800 MG TAB PO SCH ×2 (09:44→13:28)
[2023-07-21] MEDS: Hydrocortisone 10 mg Tablet PO SCH ×2 (09:44→13:28)
[2023-07-21] MEDS: Senokot S 8.6-50 MG TAB PO SCH (09:48)
[2023-07-21] MEDS: Polyethylene Glycol 3350 17 GM Packet PO SCH (09:48)
[2023-07-21 11:46] VITALS: BP 131/69; TEMP 97.7
== END 2023-07-21 15:30 | disposition home or self-care (01) | DRG 314 ==
LOC: CSHERS 17:50 → INTOOBSV 23:04 → CSHTELE 23:04 → OBSVTOIN 07-09 11:23
PROVIDERS: ADMIT Family Medicine; ATTEND Hospitalist
PROC: 30233N1 Transfusion of Nonautologous Red Blood Cells into Peripheral Vein, Percutaneous Approach (ICD-10-PCS; 2023-07-07)
PROC: 0T9B70Z Drainage of Bladder with Drainage Device, Via Natural or Artificial Opening (ICD-10-PCS; principal; 2023-07-09)
PROC: 3E03329 Introduction of Other Anti-infective into Peripheral Vein, Percutaneous Approach (ICD-10-PCS; 2023-07-11)
PROC: 05PYX3Z Removal of Infusion Device from Upper Vein, External Approach (ICD-10-PCS; 2023-07-13)
PROC: 0JH60XZ Insertion of Tunneled Vascular Access Device into Chest Subcutaneous Tissue and Fascia, Open Approach (ICD-10-PCS; 2023-07-14)
DX: T80.211A Bloodstream infection due to central venous catheter, initial encounter (principal); A41.02 Sepsis due to Methicillin resistant Staphylococcus aureus; G93.41 Metabolic encephalopathy; N18.6 End stage renal disease; J90 Pleural effusion, not elsewhere classified; I31.39 Other pericardial effusion (noninflammatory); A09 Infectious gastroenteritis and colitis, unspecified; Z68.1 Body mass index [BMI] 19.9 or less, adult; D62 Acute posthemorrhagic anemia; E46 Unspecified protein-calorie malnutrition; E87.1 Hypo-osmolality and hyponatremia; I13.0 Hypertensive heart and chronic kidney disease with heart failure and stage 1 through stage 4 chronic kidney disease, or unspecified chronic kidney disease; I50.30 Unspecified diastolic (congestive) heart failure; R64 Cachexia; R18.8 Other ascites; K56.41 Fecal impaction; E03.9 Hypothyroidism, unspecified; Z20.822 Contact with and (suspected) exposure to COVID-19; Z79.899 Other long term (current) drug therapy; Z90.49 Acquired absence of other specified parts of digestive tract; E78.5 Hyperlipidemia, unspecified; D63.1 Anemia in chronic kidney disease; R62.7 Adult failure to thrive; E87.5 Hyperkalemia; Z99.2 Dependence on renal dialysis; I25.2 Old myocardial infarction; E88.09 Other disorders of plasma-protein metabolism, not elsewhere classified; E83.39 Other disorders of phosphorus metabolism
CPT/HCPCS: 36415; 36416; 36430; 71045; 74018; 74176; 74230; 80048; 80053; 80069; 80202; 81001; 82274; 83605; 83735; 84100; 85025; 85027; 85610; 85730; 86850; 86900; 86901; 87040; 87077; 87149; 87186; 87324; 87449; 87505; 90935; 93005; 93010; 93306; 93312; 94760; 96374; 96375; 96376; C1752; G0257; G0378; J0696; J1644; J1815; J2272; J2543; J2704; J3370; J3490; J7042; J7050; J7999; P9016; S0020

== ENCOUNTER 2023-11-02 11:00 | Inpatient (IN) | payer OTHER ==
[2023-11-02 12:08] LABS: Troponin I 0.059 ng/mL (< 0.028)
[2023-11-02 12:09] LABS: ALT (SGPT) Less than 7 U/L (8-55); AST (SGOT) 12 U/L (5-34); Albumin 1.5 g/dL (3.4-4.8); Alkaline Phosphatase 80 U/L (40-110); Anion Gap 13 mmol/L (10-20); BUN (Urea Nitrogen) 23 mg/dL (9.8-20.1); Bilirubin, Total 0.5 mg/dL (0.2-1.2); Calc. Creatinine Clearance 0 mL/min (70-130); Calcium 7.9 mg/dL (7.8-10.44); Carbon Dioxide 29 mmol/L (23-31); Chloride 98 mmol/L (98-107); Estimated GFR 11; Globulin 4.5 g/dL (2.4-3.5); Glucose 58 mg/dL (80-115); Lipase 5 U/L (8-78); Potassium 4.7 mmol/L (3.5-5.1); Sodium 135 mmol/L (136-145)
[2023-11-02 12:13] LABS: #Eosinphils 0.3 10x3/uL (0.0-0.5); #Monocytes 0.3 10x3/uL (0.0-1.1); #Neutrophils 6.9 10x3/uL (1.5-8.4); %Basophils 0.5 % (0.0-2.0); %Lymphocytes 8.9 % (18.0-47.0); %Neutrophils 83.1 % (40.0-75.0); Hematocrit 26.1 % (34.9-44.5); Mean Corpuscular HGB CONC 30.7 g/dL (32.0-36.0); Mean Corpuscular Hemoglobin 31.9 pg (27.0-33.0); Mean Platelet Volume 11.9 fl (7.4-10.4); Platelet Count 100 10x3/uL (150-450); RBC Distribution Width 19.8 % (11.5-14.5); Red Blood Cell (RBC) Count 2.51 10x6/uL (3.90-5.03); White Blood Cell (WBC) Count 8.3 10x3/uL (3.5-10.5)
[2023-11-02] MEDS ORDERED: Iopamidol 370 76% 100 ML VIAL ONE (12:43)
[2023-11-02 13:02] LABS: Anisocytosis SLIGHT = 6-15 cells (100X) (0-5/hpf); Hypochromia SLIGHT = 6-15 cells (100X) (0-5/hpf); Macrocytosis SLIGHT = 6-15 cells (100X) (0-5/hpf); Platelet Adequacy Comment Appears Decreased; Polychromasia SLIGHT = 2-3 cells (100X) (0-2/hpf)
[2023-11-02 13:15] LABS: SARS-CoV-2 NAA Rapid Test DETECTED (NotDetected)
[2023-11-02] MEDS ORDERED: Dextrose 50% Abboject 50 ML SYRINGE ONE (13:30)
[2023-11-02] MEDS ORDERED: Ondansetron PF 4 MG/2 ML Vial IVP PRN (18:18)
[2023-11-02] MEDS ORDERED: Acetaminophen 325 MG TAB PO PRN (18:18)
[2023-11-02 19:50] VITALS: BMI 19.8
[2023-11-02] MEDS ORDERED: GUAIFENESIN SF SOLN 200 MG/10 ML UDCUP PO SCH (23:15)
[2023-11-02] MEDS: Amlodipine 10 MG TAB PO SCH (23:20)
[2023-11-02] MEDS: Metoprolol Tartrate 25 MG TAB PO SCH (23:21)
[2023-11-03 04:45] LABS: #Eosinphils 0.4 10x3/uL (0.0-0.5); #Monocytes 0.3 10x3/uL (0.0-1.1); #Neutrophils 6.7 10x3/uL (1.5-8.4); %Basophils 0.5 % (0.0-2.0); %Eosinophils 5.1 % (0.0-6.0); %Lymphocytes 10.5 % (18.0-47.0); %Monocytes 3.8 % (0.0-10.0); %Neutrophils 79.7 % (40.0-75.0); Hematocrit 21.8 % (34.9-44.5); Hemoglobin 6.6 g/dL (12.0-15.5); Mean Corpuscular HGB CONC 30.3 g/dL (32.0-36.0); Mean Corpuscular Volume 102.3 fl (81.6-98.3); Mean Platelet Volume 8.9 fl (7.4-10.4); Platelet Count 58 10x3/uL (150-450); RBC Distribution Width 19.6 % (11.5-14.5); Red Blood Cell (RBC) Count 2.13 10x6/uL (3.90-5.03); White Blood Cell (WBC) Count 8.4 10x3/uL (3.5-10.5)
[2023-11-03 04:59] LABS: Anion Gap 10 mmol/L (10-20); BUN (Urea Nitrogen) 13 mg/dL (9.8-20.1); Calc. Creatinine Clearance 19 mL/min (70-130); Calcium 7.6 mg/dL (7.8-10.44); Carbon Dioxide 30 mmol/L (23-31); Chloride 100 mmol/L (98-107); Estimated GFR 20; Glucose 75 mg/dL (80-115); Potassium 3.9 mmol/L (3.5-5.1); Sodium 136 mmol/L (136-145)
[2023-11-03] MEDS: Levothyroxine Sodium 100 MCG TAB PO SCH (05:06)
[2023-11-03] MEDS ORDERED: Epoetin (ESRD) 10,000 UNITS/ML VIAL SC SCH (09:00)
[2023-11-03] MEDS: Metoprolol Tartrate 25 MG TAB PO SCH ×2 (09:18→21:32)
[2023-11-03 09:41] LABS: #Basophils 0.1 10x3/uL (0.0-0.2); #Eosinphils 0.4 10x3/uL (0.0-0.5); #Monocytes 0.4 10x3/uL (0.0-1.1); %Basophils 0.6 % (0.0-2.0); %Eosinophils 4.6 % (0.0-6.0); %Lymphocytes 9.9 % (18.0-47.0); %Neutrophils 80.3 % (40.0-75.0); Hematocrit 22.7 % (34.9-44.5); Hemoglobin 6.9 g/dL (12.0-15.5); Mean Corpuscular HGB CONC 30.4 g/dL (32.0-36.0); Mean Corpuscular Hemoglobin 31.5 pg (27.0-33.0); Mean Corpuscular Volume 103.7 fl (81.6-98.3); Mean Platelet Volume 9.6 fl (7.4-10.4); Platelet Count 78 10x3/uL (150-450); RBC Distribution Width 19.7 % (11.5-14.5); Red Blood Cell (RBC) Count 2.19 10x6/uL (3.90-5.03); White Blood Cell (WBC) Count 8.7 10x3/uL (3.5-10.5)
[2023-11-03] MEDS: Amlodipine 10 MG TAB PO SCH (21:31)
[2023-11-04] MEDS: Levothyroxine Sodium 100 MCG TAB PO SCH (05:27)
[2023-11-04 07:14] LABS: Hematocrit 27.1 % (34.9-44.5); Hemoglobin 8.4 g/dL (12.0-15.5)
[2023-11-04] MEDS: Metoprolol Tartrate 25 MG TAB PO SCH (10:00)
[2023-11-04] MEDS ORDERED: Albumin 25% 25 GM/100 ML BOT IVPB PRN ×2 (10:31→12:50)
[2023-11-04] MEDS ORDERED: EPOETIN ALFA-EPBX (ESRD) 10,000 UNITS/ML VIAL IVP PRN (12:00)
[2023-11-05] MEDS: Metoprolol Tartrate 25 MG TAB PO SCH ×3 (03:23→13:01)
[2023-11-05] MEDS: Amlodipine 10 MG TAB PO SCH (03:23)
[2023-11-05] MEDS: Levothyroxine Sodium 100 MCG TAB PO SCH (06:17)
[2023-11-05] MEDS ORDERED: Dextrose 50% Abboject 50 ML SYRINGE ONE ×2 (09:22→12:36)
[2023-11-05] MEDS ORDERED: Dextrose 50% Abboject 50 ML SYRINGE SLOW IVP SCH ×4 (09:22→20:45)
[2023-11-05] MEDS: Ipratropium/Albuterol 3 ML NEB NEB PRN ×2 (13:15→20:10)
[2023-11-05] MEDS: Acetylcysteine 800 MG/4 ML VIAL INH SCH ×2 (13:15→20:10)
[2023-11-05] MEDS: Dextrose 10% in Water 1,000 ML IV SCH (18:41)
[2023-11-05 18:46] LABS: Glucose 167 mg/dL (80-115)
[2023-11-05] MEDS: Cefepime 1 GM in Sodium Chloride 0.9% 100 ML IVPB SCH ×2 (19:34→22:12)
[2023-11-05] MEDS ORDERED: Albumin 25% 25 GM/100 ML BOT IVPB SCH (19:45)
[2023-11-05 19:53] LABS: Anion Gap 16 mmol/L (10-20); BUN (Urea Nitrogen) 13 mg/dL (9.8-20.1); Calc. Creatinine Clearance 15 mL/min (70-130); Calcium 7.8 mg/dL (7.8-10.44); Carbon Dioxide 23 mmol/L (23-31); Chloride 101 mmol/L (98-107); Estimated GFR 15; Glucose 165 mg/dL (80-115); Potassium 4.6 mmol/L (3.5-5.1); Sodium 135 mmol/L (136-145)
[2023-11-05] MEDS ORDERED: Dextrose 5% in Water 1,000 ML IV PRN (20:15)
[2023-11-05] MEDS ORDERED: Glucagon 1 MG/ML KIT IM PRN (20:15)
[2023-11-05] MEDS ORDERED: Dextrose 50% Abboject 50 ML SYRINGE IVP PRN (20:15)
[2023-11-05] MEDS ORDERED: Albumin 25% 100 ML ONE (20:15)
[2023-11-05] MEDS ORDERED: Vancomycin Hemodialysis Sliding Scale FS SCH (20:45)
[2023-11-05] MEDS ORDERED: Vancomycin 1 GM in Sodium Chloride 0.9% 250 ML 250 ML IVPB SCH ×2 (20:45→22:15)
[2023-11-05] MEDS ORDERED: HOLD VANCOMYCIN FOR LEVEL >25 IVP SCH (20:45)
[2023-11-05] MEDS ORDERED: Vancomycin 1 GM in Premix 1 BAG IVPB SCH (21:00)
[2023-11-05 21:03] LABS: Hematocrit 26.2 % (34.9-44.5); Hemoglobin 7.8 g/dL (12.0-15.5); Mean Corpuscular HGB CONC 29.8 g/dL (32.0-36.0); Mean Corpuscular Hemoglobin 30.1 pg (27.0-33.0); Mean Corpuscular Volume 101.2 fl (81.6-98.3); Mean Platelet Volume 9.9 fl (7.4-10.4); RBC Distribution Width 23.7 % (11.5-14.5); Red Blood Cell (RBC) Count 2.59 10x6/uL (3.90-5.03); White Blood Cell (WBC) Count 13.2 10x3/uL (3.5-10.5)
[2023-11-05] MEDS ORDERED: Sodium Chloride 0.9% 500 ML IV SCH (21:30)
[2023-11-05 21:34] LABS: Band 8 % (5-11); Lymphocytes 2 % (21-51); Neutrophil 90 % (42-75); Nucleated RBC (Manual Ct) 1 % (0)
[2023-11-05 21:36] LABS: Ovalocytes SLIGHT = 2-5 cells (100X) (0-1/hpf); Platelet Adequacy Comment Appears Decreased; Polychromasia SLIGHT = 2-3 cells (100X) (0-2/hpf)
[2023-11-05 21:52] LABS: MDiff Complete? YES
[2023-11-05 21:54] LABS: Platelet Count 69 10x3/uL (130-400)
[2023-11-05 22:31] LABS: Chloride 109 mmol/L (98-107); Potassium 3.1 mmol/L (3.5-5.1); Sodium 139 mmol/L (136-145)
[2023-11-05 22:32] LABS: Anion Gap 10 mmol/L (10-20); BUN (Urea Nitrogen) 11 mg/dL (9.8-20.1); Calc. Creatinine Clearance 19 mL/min (70-130); Carbon Dioxide 23 mmol/L (23-31); Estimated GFR 20; Glucose 88 mg/dL (80-115)
[2023-11-05 22:34] LABS: Calcium 6.6 mg/dL (7.6-10.4)
[2023-11-05] MEDS ORDERED: Cefepime 1 GM in Sodium Chloride 0.9% 100 ML IVPB SCH (23:00)
[2023-11-05] MEDS: Potassium Chloride 20 MEQ in Premix 1 BAG IVPB SCH (23:25)
[2023-11-05] MEDS: Albumin 25% 25 GM/100 ML BOT IVPB SCH (23:46)
[2023-11-06] MEDS ORDERED: Vancomycin 1 GM in Sodium Chloride 0.9% 250 ML 250 ML IVPB SCH (01:00)
[2023-11-06] MEDS ORDERED: Cefepime 1 GM in Sodium Chloride 0.9% 100 ML IVPB SCH (01:00)
[2023-11-06] MEDS: Acetylcysteine 800 MG/4 ML VIAL INH SCH ×3 (01:22→13:15)
[2023-11-06] MEDS: Ipratropium/Albuterol 3 ML NEB NEB PRN ×3 (01:30→13:15)
[2023-11-06 02:32] LABS: Anion Gap 12 mmol/L (10-20); BUN (Urea Nitrogen) 13 mg/dL (9.8-20.1); Calc. Creatinine Clearance 16 mL/min (70-130); Calcium 7.4 mg/dL (7.8-10.44); Carbon Dioxide 23 mmol/L (23-31); Chloride 105 mmol/L (98-107); Estimated GFR 16; Glucose 128 mg/dL (80-115); Potassium 4.4 mmol/L (3.5-5.1); Sodium 136 mmol/L (136-145)
[2023-11-06] MEDS: Potassium Chloride 20 MEQ in Premix 1 BAG IVPB SCH (02:42)
[2023-11-06 03:56] LABS: PTT 59.1 sec (22.0-33.0); Prothrombin Time 21.5 sec (9.5-12.1)
[2023-11-06 03:57] LABS: Lactic Acid 3.4 mmol/L (0.5-2.2)
[2023-11-06 03:58] LABS: #Basophils 0.1 10x3/uL (0.0-0.2); #Monocytes 0.4 10x3/uL (0.0-1.1); #Neutrophils 15.5 10x3/uL (1.5-8.4); %Basophils 0.5 % (0.0-2.0); %Eosinophils 0.2 % (0.0-6.0); %Lymphocytes 3.9 % (18.0-47.0); %Monocytes 2.3 % (0.0-10.0); %Neutrophils 91.7 % (40.0-75.0); Hematocrit 25.9 % (34.9-44.5); Hemoglobin 7.8 g/dL (12.0-15.5); Mean Corpuscular HGB CONC 30.1 g/dL (32.0-36.0); Mean Corpuscular Hemoglobin 30.5 pg (27.0-33.0); Mean Corpuscular Volume 101.2 fl (81.6-98.3); Mean Platelet Volume 11.3 fl (7.4-10.4); Platelet Count 65 10x3/uL (150-450); RBC Distribution Width 23.9 % (11.5-14.5); Red Blood Cell (RBC) Count 2.56 10x6/uL (3.90-5.03); White Blood Cell (WBC) Count 16.9 10x3/uL (3.5-10.5)
[2023-11-06 04:15] LABS: Anion Gap 15 mmol/L (10-20); BUN (Urea Nitrogen) 14 mg/dL (9.8-20.1); Calc. Creatinine Clearance 14 mL/min (70-130); Carbon Dioxide 25 mmol/L (23-31); Chloride 100 mmol/L (98-107); Estimated GFR 14; Glucose 150 mg/dL (80-115); Potassium 4.5 mmol/L (3.5-5.1); Sodium 135 mmol/L (136-145)
[2023-11-06 04:20] LABS: Band 15 % (5-11); Lymphocytes 2 % (21-51); Monocytes 1 % (0-10)
[2023-11-06 04:22] LABS: Basophilic Stippling SLIGHT = 1-2 cells (100X) (None Seen); Ovalocytes SLIGHT = 2-5 cells (100X) (0-1/hpf); Platelet Adequacy Comment Appears Decreased; Polychromasia SLIGHT = 2-3 cells (100X) (0-2/hpf)
[2023-11-06 04:23] LABS: MDiff Complete? YES
[2023-11-06] MEDS: Levothyroxine Sodium 100 MCG TAB PO SCH (05:50)
[2023-11-06] MEDS: Albumin 25% 25 GM/100 ML BOT IVPB SCH ×2 (05:50→11:05)
[2023-11-06] MEDS ORDERED: Dextrose 5% in Water 1,000 ML IV PRN (09:58)
[2023-11-06] MEDS: Dextrose 10% in Water 1,000 ML IV SCH (13:49)
[2023-11-06] MEDS ORDERED: Iopamidol 300 61% 100 ML VIAL FS ONE (13:49)
[2023-11-06] MEDS ORDERED: Dexamethasone 4 mg/ml Vial SLOW IVP SCH (14:45)
[2023-11-06 14:54] VITALS: TEMP 97.4
[2023-11-06 17:16] VITALS: BP 136/75
[2023-11-07] MEDS ORDERED: Dexamethasone 10 MG in Sodium Chloride 0.9% 50 ML IVPB SCH (09:00)
[2023-11-07] MEDS ORDERED: Dexamethasone 4 mg/ml Vial SLOW IVP SCH (09:00)
== END 2023-11-06 17:12 | disposition short-term general hospital (02) | DRG 177 ==
LOC: CSHERS 11:00 → CSHTELE 17:28 → OBSVTOIN 11-04 09:12 → CSHTELE 11-05 13:22 → CSHICU 11-05 19:26
PROVIDERS: ADMIT Internal Medicine; ATTEND Internal Medicine
PROC: 30233N1 Transfusion of Nonautologous Red Blood Cells into Peripheral Vein, Percutaneous Approach (ICD-10-PCS; principal; 2023-11-03)
PROC: 30233J1 Transfusion of Nonautologous Serum Albumin into Peripheral Vein, Percutaneous Approach (ICD-10-PCS; 2023-11-04)
DX: U07.1 COVID-19 (principal); J12.82 Pneumonia due to coronavirus disease 2019; J96.01 Acute respiratory failure with hypoxia; N18.6 End stage renal disease; I31.39 Other pericardial effusion (noninflammatory); I12.0 Hypertensive chronic kidney disease with stage 5 chronic kidney disease or end stage renal disease; Z99.2 Dependence on renal dialysis; Z86.73 Personal history of transient ischemic attack (TIA), and cerebral infarction without residual deficits; I25.10 Atherosclerotic heart disease of native coronary artery without angina pectoris; E03.9 Hypothyroidism, unspecified; Z91.014 Allergy to mammalian meats; Z79.899 Other long term (current) drug therapy; D63.1 Anemia in chronic kidney disease; I25.2 Old myocardial infarction; E16.2 Hypoglycemia, unspecified; D50.0 Iron deficiency anemia secondary to blood loss (chronic)
CPT/HCPCS: 36415; 36416; 36430; 71045; 71260; 71275; 80048; 80053; 82533; 82607; 82947; 83090; 83605; 83690; 83880; 84484; 85014; 85018; 85025; 85610; 85730; 86140; 86850; 86900; 86901; 87040; 87149; 87633; 87804; 87807; 90935; 93005; 93010; 93306; 94640; 94667; 94760; 94762; 96372; 96374; G0257; G0378; J0692; J1100; J3370; J3480; J3490; J7030; J7050; J7620; J7999; P9016; P9047; Q4081; Q5105; Q9967